=== PATIENT | female | born 1975 | race American Indian/Alaskan Native ===

== ENCOUNTER 2018-10-05 18:13 | Emergency (ER) | payer BC, OTHER ==
[2018-10-05 18:19] VITALS: BP 141/92; PULSE 84; RESP 16; TEMP 98.3; O2SAT 100
[2018-10-05] MEDS ORDERED: Sodium Chloride 0.9% 1,000 ML IV SCH (18:45)
--- NOTE | 2018-10-05 19:14 | ED PDOC ---
HPI: Abdomen Time Seen by Provider: 10/05/18 18:20 Chief Complaint (Nursing): Female Genitourinary Chief Complaint (Provider): Abdominal Pain History Per: Patient History/Exam Limitations: no limitations Onset/Duration Of Symptoms: Days (x6) Current Symptoms Are (Timing): Still Present Quality Of Discomfort: Pressure, "Pain" Associated Symptoms: Nausea, Constipation, Urinary Symptoms Additional Complaint(s): 43 year old female with a history of fibroids, hemorrhoids, and left ovarian cyst presents to the ED with severe abdominal pain and pressure. Patient reports she has been dealing with these issues for a long time and goes to a specialist who monitors her fibroids and cyst. Her last US was March 2018. She notes her last period started 6 days ago and ended 2 days ago (09/29-10/02). Patient states pain was normal during her period, but continued even after it ended and progressively worsened. She took Motrin once 2 days ago with no relief. Patient has some nausea, urinary frequency, and blood when she wipes but denies vomiting. 2 days ago, she had sweats and felt lightheaded. Her period was heavy for the first two days then was normal. Patient sees Dr. Elena Wagoner in [place], who monitors fibroids and left ovarian cyst. She was just refereed to a specialist Dr. Danica Sharpe, but has her appointment next week. Patient has to travel in 2 days and pain is unbearable, prompting ED visit. Patient denies any prior pregnancies, abnormal vaginal discharge, or concern for STDs. She is sexually active with her . She notes some constipation and states her hemorrhoids are worse when she has her period. At present, she notes lots of pressure in the vaginal area, rectum and lower abdomen. PMD: Dr. Taylor Last Menstral Period: 09/29-10/02/18 Past Medical History Reviewed: Historical Data, Nursing Documentation, Vital Signs Vital Signs: Last Vital Signs Temp 98.3 F 10/05/18 18:16 Pulse 84 10/05/18 18:16 Resp 16 10/05/18 18:16 BP 141/92 H 10/05/18 18:16 Pulse Ox 100 10/05/18 18:16 Primary Care Provider: Gerald Taylor - Medical History Other PMH: fibroids, hemorrhoids, and left ovarian cyst - Surgical History Other surgeries: hammer toe and cyst removal on back - Family History Family History: States: Unknown Family Hx - Home Medications Home Medications: Ambulatory Orders Medication Instructions Recorded Cyclobenzaprine [Flexeril] 10 mg PO DAILY PRN 03/05/16 Naproxen [Naprosyn] 500 mg PO Q12 03/05/16 diaZEpam [Valium] 5 mg PO Q8 PRN #20 tab 03/05/16 traMADol [Ultram] 50 mg PO TID PRN #15 tab 03/05/16 - Allergies Allergies/Adverse Reactions: Allergies Allergy/AdvReac Type Severity Reaction Status Date / Time No Known Allergies Allergy Verified 03/05/16 10:04 Review of Systems ROS Statement: Except As Marked, All Systems Reviewed And Found Negative Constitutional: Positive for: Sweats Cardiovascular: Positive for: Light Headedness Gastrointestinal: Positive for: Nausea, Abdominal Pain (and pressure), Constipation. Negative for: Vomiting Genitourinary Female: Positive for: Frequency, Other (pressure in rectum and vaginal area) Physical Exam - Reviewed Nursing Documentation Reviewed: Yes Vital Signs Reviewed: Yes - Physical Exam Appears: Positive for: In Acute Distress (in moderate distress, tearful, holding stomach) Skin: Positive for: Normal Color, Warm, Dry Eye Exam: Positive for: Normal appearance ENT: Positive for: Normal ENT Inspection Neck: Positive for: Normal, Painless ROM, Supple Cardiovascular/Chest: Positive for: Regular Rate, Rhythm. Negative for: Murmur Respiratory: Positive for: Normal Breath Sounds. Negative for: Respiratory Distress Gastrointestinal/Abdominal: Positive for: Bowel Sounds (normoactive), Tenderness (Diffusely tender, moderate tenderness to the diffuse lower abdomen ), Organomegaly, Mass, Distended (mildly in lower abdomen), Guarding. Negative for: Rebound Extremity: Positive for: Normal ROM (upper and lower). Negative for: Calf Tenderness, Swelling Neurological/Psych: Positive for: Awake, Alert, Oriented (x3) - Laboratory Results Result Diagrams: 10/05/18 18:58 10/05/18 18:58 - ECG O2 Sat by Pulse Oximetry: 100 (RA) Pulse Ox Interpretation: Normal Medical Decision Making Medical Decision Making: Time: 1824 Plan: --Full workup including: labs, urine, US pelvic and transvaginal to rule out torsion, Zofran, and Toradol 20:00 case endorsed to PERLA Owens, pending US results, re eval and dispo ScribeAttestation: Documented byElise Llanos, acting as a scribe for Dwayne Christina PA-C. Provider ScribeAttestation: All medical record entries made by the Scribe were at my direction and personally dictated by me. I have reviewed the chart and agree that the record accurately reflects my personal performance of the history, physical exam, medical decision making, and the department course for this patient. I have also personally directed, reviewed, and agree with the discharge instructions and disposition. Disposition - Clinical Impression Clinical Impression: Abdominal pain, Fibroid, uterine, Cyst of ovary, left - Patient ED Disposition Is Patient to be Admitted: Transfer of Care (case endorsed to PERLA Owens, pending US results, re eval and dispo) Counseled Patient/Family Regarding: Studies Performed, Diagnosis, Need For Followup - Disposition Disposition: Transfer of Care (case endorsed to PERLA Owens, pending US results, re eval and dispo) Disposition Time: 20:00 Condition: STABLE - POA Present On Arrival: None
[2018-10-05 19:33] LABS: BASO % 0.5 % (0.0-2.0); EOS # 0.1 K/uL (0.0-0.7); EOS % 1.3 % (0.0-4.0); HEMOGLOBIN 13.9 g/dL (12.0-16.0); LYMPH # 3.2 K/uL (1.0-4.3); LYMPH % 32.7 % (20.0-40.0); MEAN CELL VOLUME 97.7 fl (81.0-99.0); MEAN CORPUSCULAR HEMOGLOBIN 32.6 pg (27.0-31.0); MEAN CORPUSCULAR HGB CONC 33.4 g/dL (33.0-37.0); MEAN PLATELET VOLUME 7.6 fl (7.2-11.7); MONO # 0.7 K/uL (0.0-0.8); MONO % 6.7 % (0.0-10.0); NEUT # 5.8 K/uL (1.8-7.0); NEUT % 58.8 % (50.0-75.0); NRBC % 0.2 % (0.0-0.0); RBC 4.26 Mil/uL (3.80-5.20); RED CELL DISTRIBUTION WIDTH 13.9 % (11.5-14.5); WHITE BLOOD COUNT 9.9 K/uL (4.8-10.8)
[2018-10-05 19:43] LABS: ALB/GLOB RATIO 1.6 (1.0-2.1); ALBUMIN 4.1 g/dL (3.5-5.0); ALT/SGPT 25 U/L (9-52); AST/SGOT 25 U/L (14-36); BLOOD UREA NITROGEN 15 mg/dl (7-17); CALCIUM 8.7 mg/dL (8.4-10.2); GFR NON-AFRICAN AMERICAN > 60
[2018-10-05 19:43] LABS: SQUAMOUS EPITHIAL 5 /hpf (0-5); URINE BILIRUBIN NEGATIVE (NEGATIVE); URINE BLOOD MODERATE (NEGATIVE); URINE CLARITY SLIGHTY-CLOUDY (Clear); URINE COLOR YELLOW (YELLOW); URINE GLUCOSE (UA) NEG (NEGATIVE); URINE LEUKOCYTE ESTERASE NEG Leu/uL (Negative); URINE PROTEIN NEGATIVE (NEGATIVE); URINE UROBILINOGEN 0.2-1.0 mg/dL (0.2-1.0)
--- NOTE | 2018-10-05 20:41 | ED PDOC ---
- Laboratory Results Result Diagrams: 10/05/18 18:58 10/05/18 18:58 Lab Results: Total Bilirubin 0.2 mg/dl (0.2-1.3) 10/05/18 18:58 AST 25 U/L (14-36) 10/05/18 18:58 ALT 25 U/L (9-52) 10/05/18 18:58 Alkaline Phosphatase 69 U/L (38-126) 10/05/18 18:58 Total Protein 6.7 G/DL (6.3-8.2) 10/05/18 18:58 Albumin 4.1 g/dL (3.5-5.0) 10/05/18 18:58 Globulin 2.6 gm/dL (2.2-3.9) 10/05/18 18: Albumin/Globulin Ratio 1.6 (1.0-2.1) 10/05/18 18:58 Urine Color Yellow (YELLOW) 10/05/18 19:30 Urine Clarity Slighty-cloudy (Clear) 10/05/18 19:30 Urine pH 6.0 (5.0-8.0) 10/05/18 19:30 Ur Specific [place] 1.021 (1.003-1.030) 10/05/18 19:30 Urine Protein Negative mg/dL (NEGATIVE) 10/05/18 19:30 Urine Glucose (UA) Neg mg/dL (NEGATIVE) 10/05/18 19:30 Urine Ketones Negative mg/dL (NEGATIVE) 10/05/18 19:30 Urine Blood Moderate (NEGATIVE) 10/05/18 19:30 Urine Nitrate Negative (NEGATIVE) 10/05/18 19:30 Urine Bilirubin Negative (NEGATIVE) 10/05/18 19:30 Urine Urobilinogen 0.2-1.0 mg/dL (0.2-1.0) 10/05/18 19:30 Ur Leukocyte Esterase Neg Jamia/uL (Negative) 10/05/18 19:30 Urine RBC (Auto) 1 /hpf (0-3) 10/05/18 19:30 Urine Microscopic WBC < 1 /hpf (0-5) 10/05/18 19:30 Ur Squamous Epith Cells 5 /hpf (0-5) 10/05/18 19:30 - ECG O2 Sat by Pulse Oximetry: 100 (RA) - Progress ED Course And Treament: Case endorsed to customs entry writer from Jeane Christina PA-C pending u/s, re-eval Pelvic exam (cable armorer operator Saige Sahu RN): external exam no acute findings + uterine and left adnexal tenderness Small amount of blood in vaginal vault. Neg CMT History PAIN. R/O TORSION. Comparison None available. Technique TA/TV Findings Uterus Inhomogeneous measures 15.8 x 8.8 x 9.1 cm. Multiple fibroids are seen measuring 6.8 x 7.1 x 7.2 cm, 6.3 x 5.9 x 5.9 cm and 4.4 x 4 x 4.8 cm. Endometrium Measures 9 mm in diameter. Unremarkable. Right ovary Measures 4.4 x 2 x 2.2 cm. No solid mass. Normal flow. Right adnexal complex tubular cystic structure measuring 5 x 1.8 x 2.2 cm. Left ovary Measures 3.6 x 3 x 3.5 cm. No solid mass. Normal flow. Cyst measures 2.7 x 2 x 2.4 cm. Free fluid No significant free fluid noted. Other Findings None. Impression 1. Multiple uterine fibroids. 2. Right adnexal tubular complex cystic structure, most compatible with a hydrosalpinx. 3. Left ovarian cyst. Patient educated on findings, state she has appointment next week to see pelvic pain specialist; advised to follow up as scheduled Advised NSAIDs PRN pain, patient states she does not like taking pain medications. Return precautions given Disposition - Clinical Impression Clinical Impression: Abdominal pain, Fibroid, uterine, Cyst of ovary, left, Hydrosalpinx - POA Present On Arrival: None - Disposition Disposition: Routine/Home Disposition Time: 21:41 Condition: IMPROVED Additional Instructions: Follow up at your scheduled appointment Take anti-inflammatories as directed, as needed for pain Return to ED for fever, vomiting, worsening pain, or other concerning symptoms Instructions: Ovarian Cysts, Uterine Fibroids, Chronic Pelvic Pain in Women Forms: [facility] ([place]ian)
--- NOTE | 2018-10-06 10:51 | US ---
Date of service: 10/05/2018 HISTORY: r/o torsion COMPARISON: None available. TECHNIQUE: Transabdominal and transvaginal pelvic ultrasound was performed with longitudinal and transverse images submitted for interpretation. FINDINGS: UTERUS: Measures 15.8 x 8.8 x 9.1 cm. The uterus is anteverted and enlarged with heterogeneous echotexture. There is a large intramural and submucous fibroid slightly right of center in the anterior body measuring 6.8 x 7.1 x 7.2 cm. A 2nd fibroid is identified slightly left of midline at the lower uterine segment posteriorly likely also submucous and partially exophytic appearing more hypoechoic with extensive posterior shadowing measuring 6.5 x 5.9 x 5.9 cm. There is a 3rd mass which is heterogeneous in overall echotexture and slightly more isoechoic to local parenchyma at the posterior left-sided cervix measuring 4.4 x 4.2 x 4.8 cm likely representing a cervical fibroid. Direct visualization of the cervix with Pap smear is advised for characterization of the cervix clinically. Cervical neoplasm is not completely excluded. ENDOMETRIUM: Measures 9.0 mm in diameter. Partially obscured by extensive shadowing from anterior uterine body fibroid. CERVIX: Other than likely cervical fibroid described in uterus section above, cervix otherwise appears unremarkable. RIGHT OVARY: Measures 4.4 x 2.0 x 2.2 cm. No solid mass. Normal flow. There is a mildly complex cystic structure, teardrop shaped, measuring 5.0 x 1.8 x 12.2 cm seen only on the transabdominal portion of the examination possibly representing peritoneal inclusion cyst if this patient has prior history of surgery. If not, etiology is unclear. It may represent hydrosalpinx. LEFT OVARY: Measures 3.6 x 3.0 x 3.3 cm with a simple cyst 2.7 x 2.0 x 2.4 cm. Cm. No solid mass. Normal flow. FREE FLUID: No significant free fluid noted. OTHER FINDINGS: None. IMPRESSION: Enlarged uterus identified due to multiple large fibroids as discussed above at the body and lower uterine segment. A 4.8 cm left-sided cervical fibroid is suspected. Cervical neoplasm is difficult to exclude and correlation with direct visualization and Pap smear is advised for follow-up. Normal right ovary. Possible right hydrosalpinx versus peritoneal inclusion cyst. Clinically correlate as to possibility of prior pelvic surgery. 2.7 cm simple cyst left ovary.
== END 2018-10-05 21:59 | disposition home or self-care (01) ==
LOC: H.ER 18:13
DX: R10.9 Unspecified abdominal pain (principal); D25.9 Leiomyoma of uterus, unspecified; N83.202 Unspecified ovarian cyst, left side
CPT/HCPCS: 76830; 76856; 80053; 81003; 81025; 85025; 87086; 87491; 87591; 96374; 96375; 99285; J1885; J2405; J7030